=== PATIENT | female | born 1985 | race Caucasian/White ===

== ENCOUNTER → 2016-10-19 | Outpatient (CLI) | payer OTHER | END | disposition home or self-care (01) | LOC: C.PAPS 15:20 | PROVIDERS: ATTEND Obstetrics & Gynecology | DX: Z12.4 Encounter for screening for malignant neoplasm of cervix (principal) ==

== ENCOUNTER → 2017-05-31 | Outpatient (CLI) | payer OTHER ==
[2017-05-31 17:17] LABS: BASO % 0.6 %; BASO ABS # 0.03 K/uL (0-0.2); EOS % 2.5 %; EOS ABS # 0.13 K/uL (0-0.5); HEMATOCRIT 40.4 % (37-47); HEMOGLOBIN 13.3 g/dL (12.0-16.0); LYMPH % 23.3 %; LYMPH ABS # 1.22 K/uL (1.2-3.4); MEAN CELL VOLUME 93.1 fL (80-100); MEAN CORPUSCULAR HEMOGLOBIN 30.6 pg (25-34); MEAN CORPUSCULAR HGB CONC 32.9 g/dl (32-36); MEAN PLATELET VOLUME 9.7 fL (7.4-10.4); MONO % 7.1 %; MONO ABS # 0.37 K/uL (0.11-0.59); NEUT % 66.5 %; NEUT ABS # 3.48 K/uL (1.4-6.5); PLATELET COUNT 222 K/uL (130-400); RED CELL DISTRIBUTION WIDTH CV 12.7 % (11.5-14.5); RED CELL DISTRIBUTION WIDTH SD 43.8 fL (36.4-46.3); WHITE BLOOD COUNT 5.23 K/uL (4.8-10.8)
[2017-05-31 17:36] LABS: ALBUMIN 4.1 gm/dl (3.4-5.0); ALKALINE PHOSPHATASE 37 U/L (45-117); ALT/SGPT 21 U/L (12-78); AST/SGOT 17 U/L (15-37); BLOOD UREA NITROGEN 17 mg/dl (7-18); CARBON DIOXIDE 30 mmol/L (21-32); CREATININE 0.83 mg/dl (0.60-1.20); GLUCOSE 61 mg/dl (70-99); POTASSIUM 3.7 mmol/L (3.5-5.1); SODIUM 139 mmol/L (136-145)
[2017-05-31 17:40] LABS: CHOLESTEROL 148 mg/dl (0-200); LDL CHOLESTEROL CALCULATED 70 mg/dl; TOTAL PROTEIN 8.1 gm/dl (6.4-8.2)
== END | disposition home or self-care (01) ==
LOC: C.LABBFT 11:22
PROVIDERS: ATTEND Physician Assistant Medical
DX: E06.3 Autoimmune thyroiditis (principal); Z00.00 Encounter for general adult medical examination without abnormal findings

== ENCOUNTER → 2017-06-03 | Outpatient (CLI) | payer OTHER ==
[2017-06-07 16:29] LABS: MICROSOMAL AB 9 IU/ML (<9); TSI <89 % baseline (<140)
== END | disposition home or self-care (01) ==
LOC: C.LABBFT 09:24
PROVIDERS: ATTEND Physician Assistant Medical
DX: E06.3 Autoimmune thyroiditis (principal)

== ENCOUNTER → 2017-06-09 | Outpatient (CLI) | payer OTHER ==
--- NOTE | 2017-06-09 14:48 | DIAGNOSTIC IMAGING REPORT ---
SOFT TISS HEAD/NECK-THYROID CLINICAL HISTORY: 31 years-old Female presenting with E06.3 Amanda's [id number]. TECHNIQUE: Real-time grayscale and color Doppler ultrasound imaging of the thyroid and base of the neck was performed. COMPARISON: 08/10/2011. FINDINGS: Right lobe: Heterogeneously hypoechoic parenchyma. The right lobe of the thyroid measures 6.7 x 2.4 x 2.3 cm. No nodules. Hyperemic parenchyma. Left lobe: Heterogeneously hypoechoic parenchyma. The left lobe of the thyroid measures 6.3 x 2.1 x 2.1 cm. No nodules. Hyperemic parenchyma. Isthmus: The isthmus measures 7 mm in thickness. No nodules. IMPRESSION: Hyperemic and heterogeneous parenchyma consistent with given diagnosis of Amanda's thyroiditis. No discrete nodule. Electronically signed by: Arsenio Napier M.D. 06/09/2017 2:46 PM Dictated Date/Time: 06/09/2017 2:45 PM
== END | disposition home or self-care (01) ==
LOC: C.ULTR 14:18
PROVIDERS: ATTEND Physician Assistant Medical
DX: E06.3 Autoimmune thyroiditis (principal)

== ENCOUNTER → 2017-08-06 | Outpatient (CLI) | payer OTHER | END | disposition home or self-care (01) | LOC: C.LAB1850 09:41 | PROVIDERS: ATTEND Internal Medicine Endocrinology, Diabetes & Metabolism | DX: E06.3 Autoimmune thyroiditis (principal); L70.9 Acne, unspecified ==